=== PATIENT | male | born 1935 | race Caucasian/White ===

== ENCOUNTER → 2017-09-01 | Outpatient (CLI) | payer MEDICARE, OTHER | LOC: M SMT PRO 08:51 | DX: C61 Malignant neoplasm of prostate (principal); R97.20 Elevated prostate specific antigen [PSA]; N40.2 Nodular prostate without lower urinary tract symptoms | CPT/HCPCS: G0416 ==

== ENCOUNTER → 2017-09-07 | Outpatient (CLI) | payer MEDICARE, OTHER ==
[2017-09-07 18:54] LABS: ANION GAP 9 MEQ/L (8-16); BLOOD UREA NITROGEN 15 MG/DL (7-18); CALCIUM LEVEL 8.6 MG/DL (8.8-10.2); CARBON DIOXIDE LEVEL 27 MEQ/L (21-32); CHLORIDE LEVEL 107 MEQ/L (98-107); CREATININE FOR GFR 0.85 MG/DL (0.70-1.30); GLOMERULAR FILTRATION RATE > 60.0 (>35); GLUCOSE, FASTING 86 MG/DL (70-100); POTASSIUM SERUM 4.3 MEQ/L (3.5-5.1); SODIUM LEVEL 143 MEQ/L (136-145)
== END ==
LOC: M SMT 11:53
DX: C61 Malignant neoplasm of prostate (principal)
CPT/HCPCS: 80048

== ENCOUNTER → 2017-09-10 | Outpatient (CLI) | payer MEDICARE, OTHER ==
[~2017-09-10] MED LIST: ISOVUE-370 76% 100ML VIAL (Q9967) As Ordered
== END ==
LOC: M RAD 08:52
DX: C61 Malignant neoplasm of prostate (principal)
CPT/HCPCS: Q9967

== ENCOUNTER → 2017-09-22 | Outpatient (CLI) | payer MEDICARE, OTHER | LOC: M ONCR 09:59 | DX: C61 Malignant neoplasm of prostate (principal) | CPT/HCPCS: G0463 ==

== ENCOUNTER → 2017-10-06 | Outpatient (CLI) | payer MEDICARE, OTHER | LOC: M SMT 09:50 | DX: C61 Malignant neoplasm of prostate (principal) | CPT/HCPCS: A4648 ==

== ENCOUNTER 2017-10-20 10:25 | Outpatient (RCR) | payer MEDICARE, OTHER ==
[2017-10-20 12:31] LABS: HEMATOCRIT 45.2 % (42.0-52.0); HEMOGLOBIN 15.2 g/dl (13.5-17.5); MEAN CORPUSCULAR HEMOGLOBIN 29.9 pg (27.0-33.0); MEAN CORPUSCULAR HGB CONC 33.6 g/dl (32.0-36.5); PLATELET COUNT, AUTOMATED 213 10^3/uL (150-450); RED BLOOD COUNT 5.08 10^6/uL (4.30-6.10); RED CELL DISTRIBUTION WIDTH 12.2 % (11.5-14.5); WHITE BLOOD COUNT 9.3 10^3/uL (4.0-10.0)
== END 2017-11-09 ==
LOC: M ONCR 10:25
DX: C61 Malignant neoplasm of prostate (principal)
CPT/HCPCS: 77300

== ENCOUNTER 2017-11-10 09:39 | Outpatient (RCR) | payer MEDICARE, OTHER | END 2017-12-10 | LOC: M ONCR 09:39 | DX: C61 Malignant neoplasm of prostate (principal) | CPT/HCPCS: 77300 ==

== ENCOUNTER 2017-12-11 10:58 | Outpatient (RCR) | payer MEDICARE, OTHER | END 2018-01-09 | LOC: M ONCR 10:58 | DX: C61 Malignant neoplasm of prostate (principal) | CPT/HCPCS: 77336 ==

== ENCOUNTER → 2018-02-03 | Outpatient (CLI) | payer MEDICARE, OTHER ==
[2018-02-03 09:43] LABS: PROSTATIC SPECIFIC AG MONITOR 1.31 NG/ML (< 4.0)
== END ==
LOC: M LAB 08:38
DX: C61 Malignant neoplasm of prostate (principal)
CPT/HCPCS: 84153

== ENCOUNTER → 2018-02-10 | Outpatient (CLI) | payer MEDICARE, OTHER | LOC: M ONCR 10:21 | DX: C61 Malignant neoplasm of prostate (principal) | CPT/HCPCS: G0463 ==

== ENCOUNTER → 2018-05-27 | Outpatient (CLI) | payer MEDICARE, OTHER ==
[2018-05-27 14:41] LABS: PROSTATIC SPECIFIC AG MONITOR 0.6 NG/ML (< 4.0)
== END ==
LOC: M SMT 08:28
DX: C61 Malignant neoplasm of prostate (principal)
CPT/HCPCS: 84153

== ENCOUNTER → 2018-07-28 | Outpatient (CLI) | payer MEDICARE, OTHER ==
[~2018-07-28] MED LIST changes: +/ROPI1TA; +/TAMS4CA PO; +ACET50TA PO; +ASPI81TA83; +CAPSAICIN TOP; +CELE100C OR; +COLA100C2; +COMBIVENT INH; +DESOXIMETASONE; +DOCU10ELUD PO; +FLUN7IN; +FLUTISP; +FURO20TA PO; +HYDR25TA6; +IBUP600T; -ISOVUE-370 76% 100ML VIAL (Q9967) As Ordered; +LISI10TA4; +LOSARTAN PO; +MAGN500T2; +OMEP20CA3 PO; +PERC7.5T12 PO; +PRED5TAB; +PROS5TAB OR; +SIMV10TA2 OR; +TERA2CAP; +TERA2CAP3; +TRAMADOL PO; +TYLENOL #3; +UREA TOP; +VITACAP31 PO; +[UNRECOGNIZED DRUG - OTHER]; +cholecalciferol PO; +colestipol; +hydrocodone PO; +lisinopril/hctz PO
--- NOTE | 2018-07-29 11:09 | RADONC ---
RADIATION ONCOLOGY FOLLOWUP NOTE DATE: 07/28/2018 DIAGNOSIS: Prostate cancer. STAGE: Stage II C, [id number], PSA 13.7, Asad score 7 (4+3), grade group III. ECOG PERFORMANCE STATUS: 0. FOLLOWUP NOTE: Mr. 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 The patient presents today reporting that he is doing quite well with no complaints at this time related to his radiation therapy or disease. He has no significant urinary or bowel difficulties and no bone pain. The patient's review of systems is noncontributory. Denies nausea, vomiting, fevers, chills, night sweats, diplopia, headaches, anxiety or depression, anorexia, weight loss, visual disturbances, chest pain, urinary or bowel difficulties, bone pain, or neurological problems. PHYSICAL EXAMINATION: The patient is a well-developed, well-nourished male in no acute distress. HEENT exam is normocephalic, atraumatic. Extraocular movements are intact. There is no palpable cervical, supraclavicular, infraclavicular, axillary, or inguinal lymphadenopathy present. Lungs are clear to auscultation and percussion. Heart has a regular rate and rhythm. Abdomen is benign with no hepatosplenomegaly, masses, or tenderness. Rectal examination reveals a normal anal sphincter tone. His prostate is smooth with no evidence of nodularity. Skeletal examination reveals no tenderness to pressure or percussion of the bony skeleton. Extremities reveal no clubbing, cyanosis, or edema. Neurologic exam is grossly intact, as is the remainder of the physical examination. ASSESSMENT: The patient is clinically EVITA at this time and will be seen by us again in 6 months for further followup. He will also continue to be followed by his other physicians as well. cc: Nba Romero MD [facility]
== END ==
LOC: M ONCR 09:17
PROVIDERS: ATTEND Radiology Radiation Oncology
DX: Z85.46 Personal history of malignant neoplasm of prostate (principal)

== ENCOUNTER → 2018-11-16 | Outpatient (CLI) | payer MEDICARE, OTHER ==
[~2018-11-16] MED LIST changes: -/ROPI1TA; -/TAMS4CA PO; -ACET50TA PO; -DOCU10ELUD PO; +DOCU5LIQ PO; +FLOM0.4C39 PO; +FLUT1SPR2; -FLUTISP; +MAPA500T17 PO; +REQU1TAB16
== END ==
LOC: M SMT 10:41
PROVIDERS: ATTEND Urology
DX: C61 Malignant neoplasm of prostate (principal)

== ENCOUNTER → 2019-01-05 | Outpatient (CLI) | payer MEDICARE, OTHER | LOC: M ONCR 07:51 | PROVIDERS: ATTEND Radiology Radiation Oncology | DX: R97.20 Elevated prostate specific antigen [PSA] (principal) ==

== ENCOUNTER → 2019-01-12 | Outpatient (CLI) | payer MEDICARE, OTHER ==
--- NOTE | 2019-01-13 09:46 | RADONC ---
RADIATION ONCOLOGY FOLLOWUP NOTE DATE: 01/12/2019 CHART NUMBER: DIAGNOSIS: Prostate cancer. STAGE: IIC, [id number], PSA originally 13.7, Asad score 7 (4+ 3), grade group 3. ECOG PERFORMANCE STATUS: 0. FOLLOWUP NOTE: Mr. Bryan is a very pleasant 84-year-old white male with a diagnosis of a stage IIC, [id number], moderately to poorly differentiated Asad score 7 (4+3), adenocarcinoma of the prostate who presents to us today after having completed a course of local regional radiotherapy on 12/30/2017. He tolerated his radiotherapy reasonably well and returns today with no specific complaints referable to his disease or to his treatments. His most recent PSA was noted to be 0.680 ng/ml. This has reduced since his prior PSA of 1.31. REVIEW OF SYSTEMS: In general the patient feels well. He denies any nausea, vomiting, diarrhea, dysuria, hematuria or blood per rectum. His energy level is somewhat diminished but he is still able to maintain most day-to-day activities without any alteration of his lifestyle. He continues to play golf several times per week. He also denies any chest pain, urinary issues, bone pain or neurologic problems. PHYSICAL EXAMINATION: He is a well-developed, well-nourished male who looks appropriate for his stated age. Skin: The skin within the irradiated volume shows neither erythema nor desquamation. Lymphatics: No palpable peripheral lymphadenopathy. Lungs: Clear to auscultation and percussion. Heart: Regular without murmurs. Abdomen: Without evidence of hepatomegaly, masses, deep abdominal tenderness. Extremities: Without cyanosis, clubbing or edema. Rectal: Examination essentially negative. Neurologic: Examination grossly physiologic and nonfocal. IMPRESSION: The patient is clinically EVITA now with a PSA of 0.680 ng/ml. PLAN: We would like to have him come back in approximately 6 months. He was encouraged to return to his referring physicians as per their directions and instructions. cc: Nba Romero MD
== END ==
LOC: M ONCR 09:04
PROVIDERS: ATTEND Radiology Radiation Oncology
DX: Z85.46 Personal history of malignant neoplasm of prostate (principal); Z92.3 Personal history of irradiation

== ENCOUNTER → 2019-06-22 | Outpatient (CLI) | payer MEDICARE, OTHER ==
--- NOTE | 2019-06-22 11:41 | RADONC ---
RADIATION ONCOLOGY FOLLOWUP NOTE DATE: 06/22/2019 CHART NUMBER: [id number] DIAGNOSIS: Prostate cancer. STAGE: II C, [id number], PSA originally 13.7, Ashley score 7 (4-3), grade group 3. ECOG PERFORMANCE STATUS: 0 FOLLOWUP NOTE: Mr. Bryan is a very pleasant 84-year-old white male with the diagnosis of a stage II C, [id number], moderate to poorly differentiated Ashley score 7 (4-3) adenocarcinoma prostate who is presenting to us today for routine followup visit 1 year and 6 months post completion of external beam radiation therapy. The patient presents today reporting that he is doing quite well with no complaints at this time related to his radiation therapy or disease. He has no urinary or bowel difficulties. No bone pain. REVIEW OF SYSTEMS: The patient's review of systems is noncontributory. Denies nausea, vomiting, fevers, chills, night sweats, diplopia, headaches, anxiety or depression, anorexia, weight loss, visual disturbances, chest pain, urinary or bowel difficulties, bone pain, or neurological problems. PHYSICAL EXAMINATION: The patient is a well-developed, well-nourished male in no acute distress. HEENT exam is normocephalic, atraumatic. Extraocular movements are intact. There is no palpable cervical, supraclavicular, infraclavicular, axillary, or inguinal lymphadenopathy present. Lungs are clear to auscultation and percussion. Heart has a regular rate and rhythm. Abdomen is benign with no hepatosplenomegaly, masses, or tenderness. Rectal examination reveals a normal anal sphincter tone. His prostate is smooth with no evidence of nodularity. Skeletal examination reveals no tenderness to pressure or percussion of the bony skeleton. Extremities reveal no clubbing, cyanosis, or edema. Neurologic exam is grossly intact, as is the remainder of the physical examination. ASSESSMENT: The patient is clinically EVITA at this time and will be seen by us again in 6 months for further followup. He will also continue be followed by his other physicians as well. cc: Nba Romero MD
== END ==
LOC: M ONCR 08:54
PROVIDERS: ATTEND Radiology Radiation Oncology
DX: Z85.46 Personal history of malignant neoplasm of prostate (principal); Z92.3 Personal history of irradiation

== ENCOUNTER → 2019-12-14 | Outpatient (CLI) | payer MEDICARE, OTHER ==
--- NOTE | 2019-12-20 08:26 | RADONC ---
RADIATION ONCOLOGY FOLLOWUP NOTE DATE: 12/14/2019 This is a telemedicine visit. The patient was informed of the risks including security breech, technological failure, inability to perform a comprehensive physical exam which could delay or prevent an accurate diagnosis, and potential complications from treatment decisions rendered over a telemedicine platform. The patient understands and consented to the use of telehealth services phone only. CHART #: [id number] DIAGNOSIS: Prostate cancer. STAGE: II C, T2b,N0, M0, Asad score 7 (3-4) grade group III, original PSA 13.7. ECOG PERFORMANCE STATUS: 0. FOLLOWUP NOTE: Mr. Bryan is a very pleasant 85-year-old white male with the diagnosis of a stage II C, T2b, N0, M0, moderate to poorly differentiated Asad score 7 (3-4) adenocarcinoma of the prostate who is presenting to us today for routine followup visit almost 2 years post completion of external beam radiation therapy. The patient presents today reporting that he is doing quite well with no complaints at this time related to his radiation therapy or disease. He has no urinary or bowel difficulties. No bone pain. REVIEW OF SYSTEMS: The patient's review of systems is noncontributory. Denies nausea, vomiting, fevers, chills, night sweats, diplopia, headaches, anxiety or depression, anorexia, weight loss, visual disturbances, chest pain, urinary or bowel difficulties, bone pain, or neurological problems. PHYSICAL EXAMINATION: Physical examination was deferred at this point for as per COVID-19 precautions. This was a telephone interview. Mr. Bryan is doing well post radiation and his PSA has dropped again to 0.68, drawn on 12/07/2019. We scheduled the patient for a followup visit in our office in six months' time. cc: Nba Romero MD
== END ==
LOC: M ONCR 09:04
PROVIDERS: ATTEND Radiology Radiation Oncology
DX: C61 Malignant neoplasm of prostate (principal)

== ENCOUNTER → 2020-06-13 | Outpatient (CLI) | payer MEDICARE, OTHER ==
[~2020-06-13] MED LIST changes: +TAMS1CAP17 PO
--- NOTE | 2020-06-13 10:45 | RADONC ---
Radiation Oncology Hx/FUP Radiation Oncology Hx/FUP Date of Service: Jun 13, 2020 Pt Identifier Bienvenido Bryan is a 84 year old male seen for a followup visit today at the department of radiation oncology for a history of prostate cancer T2b [place] 4+3=7 PSA 13.7. He completed EBRT to 79.2 Gy in 44 fractions on 12/30/17. He also completed 6 months of ADT with Dr. Romero. Diagnosis/Treatment History Oncologic History As above. PSA Pre RT 13.70 02/03/18 1.31 05/27/18 0.60 11/26/18 0.81 01/05/19 1.10 06/15/19 1.25 12/07/19 0.68 Interval History Feels well. Appetite and energy levels good. 2-3x nocturia. 10x daytime frequency with some urgency. Stream is good, emptying sometimes incomplete. Taking flomax 0.4 mg QHS. No side effects from this. He has normal BMs daily. No BRBPR. No dyschezia. Current Therapy Surveillance Stage Unfavorable intermediate risk prostate cancer T2b [place] 4+3=7 PSA 13.7 Social History: Non-smoker Non-drinker Allergies / Meds Allergies: Coded Allergies: No Known Allergies (Verified , 08/25/08) Home Meds Reported Medications Acetaminophen (TYLENOL) 500 Mg Tab, 650 MG PO Q4HP PRN for PAIN, TAB 06/22/13 Tamsulosin HCl (FLOMAX) 0.4 Mg Cap, 0.4 MG PO DAILY, CAP 06/22/13 Docusate Sodium (COLACE LIQUID) 100 Mg/10 Ml Liqd, 100 MG PO BID 06/22/13 [Combivent] No Conflict Check, 2 PUFFS INH QID 06/16/13 [Furosemide] (Furosemide) No Conflict Check, 20 MG PO DAILY 06/16/13 [Losartan] No Conflict Check, 50 MG PO BID 06/16/13 Omeprazole (OMEPRAZOLE) 20 Mg Cap, 20 MG PO DAILY, CAP 06/16/13 [Vitamin D3] (VITAMIN D3) No Conflict Check, 1000 UNITS PO DAILY 06/16/13 Celecoxib (Celebrex) 100 Mg Cap, 100 MG OR BID 02/13/11 Ropinirole Hcl (Requip) 1 Mg Tab 08/25/08 Aspirin (Aspirin Low Dose) 81 Mg Tab 08/25/08 Discontinued Reported Medications Percocet (PERCOCET) 1 Tab Tab, 1-2 TABS PO Q4HP PRN for PAIN, TAB 06/22/13 Fluticasone Propionate (FLONASE 0.05% NASAL SPRAY) 120 Phelps/16 Gm Naspr, 2 SPRAY NA BIDP PRN for NASAL DRYNESS 06/22/13 Review of Systems Review of Systems Constitutional: Denies: Weakness, Fatigue, Weight Loss Eyes: Denies: Pain, Vision change HEENT: Denies: Head Aches Skin: Denies: Rash Pulmonary: Denies: Dyspnea, Cough Cardiovascular: Denies: Chest Pain Gastrointestinal: Denies: Nausea, Vomiting, Diarrhea, Hematochezia Genitourinary: Reports: Frequency; Denies: Dysuria, Incontinence, Hematuria Hematologic: Denies: Bruising Endocrine: Denies: Polydipsia Musculoskeletal: Denies: Neck pain, Back pain Neurological: Denies: Weakness, Numbness Psych: Reports: Mood Normal Physical Examination Vital Signs Ht 67" Wt 193 lb BMI 30 T 98.2 P 55 RR 18 BP 156/62 O2 96% General Exam: Positive: Alert, Cooperative; Negative: No Acute Distress Eye Exam: Positive: PERRLA, EOMI ENT EXAM: Positive: Atraumatic, Pharynx Normal Neck Exam: Positive: Supple Chest Exam: Positive: Normal air movement Heart Exam: Positive: Rate Normal, Regular Rhythm Abdomen Exam: Positive: Soft; Negative: Tenderness Extremity Exam: Negative: Edema Skin Exam: Positive: Nl turgor and temperature Neuro Exam: Positive: Normal Gait, Normal Speech, Cranial Nerves 3-12 NL Psych Exam: Positive: Mental status NL, Mood NL Other Physical Findings Deferred MICHELE, needs PSA drawn today Diagnostic and Laboratory Diagnostic Review Radiologic images, relevant labs and pathology reports were personally reviewed and discussed with Mr. Bryan. Assessment and Plan Impression Assessment Mr. Bryan is a 84 year old male with a history of prostate cancer T2b [place] 4+3=7 PSA 13.7. He completed EBRT to 79.2 Gy in 44 fractions on 12/30/17. He also completed 6 months of ADT with Dr. Romero. He has some urinary bother, we discussed increasing flomax to 0.8 mg QHS in effort to reduce his nocturia. I will send a new Rx. He is due for a PSA check today, if his PSA remains stable then I will see him in one year, if it is oscillating, then we can continue q6m. He agrees to the plan and will call if the increase in flomax fails to improve his frequent urination. Plan PSA today, will call with result Increase flomax to 0.8 mg QHS Follow up in 1 year if PSA stable/low Mr. Bryan was encouraged to call with questions or concerns in the interim period. DEION WADE MD Jun 13, 2020 10:45
== END ==
LOC: M ONCR 09:54
PROVIDERS: ATTEND General Practice
DX: C61 Malignant neoplasm of prostate (principal)
CPT/HCPCS: 36415; 84153; G0463

== ENCOUNTER → 2020-09-28 | Outpatient (CLI) | payer MEDICARE, OTHER ==
[2020-09-28 17:31] LABS: C REACTIVE PROTEIN QUANTITATIV 6.35 MG/DL (0.00-0.30); RHEUMATOID FACTOR QUANT < 10.0 IU/ML (<15.0); URIC ACID 4.7 MG/DL (3.5-7.2)
[2020-10-01 16:08] LABS: ANTINUCLEAR ANTIBODIES DIRECT Negative (Negative); Lyme Disease IgG/IgM Antibodie <0.91 ISR (0.00-0.90); Lyme Disease IgM Ab Quantitati <0.80 index (0.00-0.79)
== END ==
LOC: M PLALAB 13:30
PROVIDERS: ATTEND Orthopaedic Surgery
DX: R22.32 Localized swelling, mass and lump, left upper limb (principal)

== ENCOUNTER → 2020-11-20 | Outpatient (REF) | payer MEDICARE, OTHER ==
[2020-11-20 13:11] LABS: BASO % 0.3 % (0.0-1.0); EOS # 0.4 10^3/uL (0.0-0.5); EOS % 3.8 % (0.0-3.0); HEMATOCRIT 42.3 % (42.0-52.0); HEMOGLOBIN 13.5 g/dl (13.5-17.5); LYMPH # 1.5 10^3/uL (1.5-5.0); LYMPH % 15.4 % (24.0-44.0); MEAN CORPUSCULAR HEMOGLOBIN 27.7 pg (27.0-33.0); MEAN CORPUSCULAR HGB CONC 31.9 g/dl (32.0-36.5); MEAN CORPUSCULAR VOLUME 86.9 fl (80.0-96.0); MONO # 0.6 10^3/uL (0.0-0.8); MONO % 6.6 % (2.0-8.0); NEUTROPHILS # 6.9 10^3/uL (1.5-8.5); NEUTROPHILS % 73.5 % (36.0-66.0); PLATELET COUNT, AUTOMATED 327 10^3/uL (150-450); RED BLOOD COUNT 4.87 10^6/uL (4.30-6.10); WHITE BLOOD COUNT 9.4 10^3/uL (4.0-10.0)
[2020-11-20 13:45] LABS: ALBUMIN 3.3 GM/DL (3.2-5.2); ALT/SGPT 45 U/L (12-78); BILIRUBIN,TOTAL 1.1 MG/DL (0.2-1.0); BLOOD UREA NITROGEN 12 MG/DL (7-18); C REACTIVE PROTEIN QUANTITATIV 3.54 MG/DL (0.00-0.30); CALCIUM LEVEL 9.2 MG/DL (8.8-10.2); CARBON DIOXIDE LEVEL 30 MEQ/L (21-32); CHLORIDE LEVEL 105 MEQ/L (98-107); ERYTHROCYTE SEDIMENTATION RATE 23 mm/hr (0-20); GLOMERULAR FILTRATION RATE > 60.0 (>35); GLUCOSE, FASTING 101 MG/DL (70-100); SODIUM LEVEL 139 MEQ/L (136-145); TOTAL PROTEIN 6.2 GM/DL (6.4-8.2)
[2020-11-20 13:59] LABS: HEPATITIS B SURFACE ANTIGEN NEGATIVE (NEGATIVE)
[2020-11-20 14:28] LABS: HEPATITIS C VIRUS ABY INDEX < 0.0 INDEX (<0.8)
[2020-11-21 23:10] LABS: CYCLIC CITRULLINATED PEPTIDE 9 units (0-19); HEPATITIS B CORE ANTIBODY IGG Negative (Negative); SSA SJOGRENS A <0.2 AI (0.0-0.9); SSB SJOGRENS B <0.2 AI (0.0-0.9)
== END ==
LOC: M SFHCRHEU 08:52
PROVIDERS: ATTEND Internal Medicine Rheumatology
DX: M06.09 Rheumatoid arthritis without rheumatoid factor, multiple sites (principal)
CPT/HCPCS: 80053; 85025; 85652; 86140; 86200; 86235; 86480; 86704; 86803; 87340; 96372; G0463; J1040

== ENCOUNTER → 2020-11-23 | Outpatient (CLI) | payer MEDICARE, OTHER ==
--- NOTE | 2020-11-23 12:10 | REPPI ---
INDICATION: M06.09 RHEUMATOID ARTHRITIS OF MULTIPLE SITES WITH NEGATIVE COMPARISON: None. TECHNIQUE: Four views bilateral feet. FINDINGS: There is no evidence of acute fracture, dislocation, or intrinsic bone disease.The right there is mild inferior calcaneal spurring. There is mild narrowing and sclerosis at the 1st metatarsophalangeal joint. There is mild diffuse narrowing of interphalangeal joints. Accessory ossicles are seen lateral to the cuboid. On the left is mild inferior calcaneal spurring. There is mild narrowing and sclerosis at the 1st metatarsophalangeal joint. There is an accessory ossicle lateral to the cuboid. There is mild diffuse narrowing of interphalangeal joints. Mild scattered vascular calcifications are seen in the soft tissues. IMPRESSION: No fracture or dislocation. Mild arthritic changes as discussed above. <Electronically signed by Jesus South > 11/23/20 [id number]
--- NOTE | 2020-11-23 12:36 | REPPI ---
INDICATION: M06.09 RHEUMATOID ARTHRITIS OF MULTIPLE SITES WITH NEGATIVE COMPARISON: None. TECHNIQUE: Four views bilateral hands. FINDINGS: There is no evidence of acute fracture, dislocation, or intrinsic bone disease.On the left there is mild radiocarpal joint space narrowing with subchondral sclerosis. There is mild narrowing between the scaphoid and adjacent trapezium and trapezoid bones. There is mild narrowing of the 1st, 4th and 5th metacarpophalangeal joints. There is moderately severe narrowing of the 2nd and 3rd metacarpophalangeal joints. There is mild spurring of the base of the 1st distal phalanx. There is mild diffuse narrowing of the distal interphalangeal joints. There is mild spurring at the base of the 2nd distal phalanx. On the right there is mild radiocarpal joint space narrowing and subchondral sclerosis. There is mild narrowing between the scaphoid and adjacent trapezium and trapezoid. There is mild narrowing and spurring at the joint between trapezoid and base of 1st metacarpal. There is mild diffuse narrowing of metacarpophalangeal joints with moderately severe narrowing of the 2nd metacarpophalangeal joint. There is mild spurring of the head of the 2nd metacarpal. There is mild diffuse narrowing of the interphalangeal joints. There is mild spurring at the base of the 2nd distal phalanx. Mild vascular calcifications are seen in the soft tissues of the wrist anteriorly and laterally. IMPRESSION: No fracture or dislocation. Bilateral arthritic changes as discussed in detail above. <Electronically signed by Jesus South > 11/23/20 1955
== END ==
LOC: M PLAIMG 11:03
PROVIDERS: ATTEND Internal Medicine Rheumatology
DX: M06.041 Rheumatoid arthritis without rheumatoid factor, right hand (principal); M06.042 Rheumatoid arthritis without rheumatoid factor, left hand; M06.072 Rheumatoid arthritis without rheumatoid factor, left ankle and foot; M06.071 Rheumatoid arthritis without rheumatoid factor, right ankle and foot

== ENCOUNTER → 2021-01-18 | Outpatient (REF) | payer MEDICARE, OTHER ==
[2021-01-18 17:27] LABS: BASO % 0.5 % (0.0-1.0); EOS # 0.1 10^3/uL (0.0-0.5); EOS % 1.6 % (0.0-3.0); HEMATOCRIT 42.3 % (42.0-52.0); HEMOGLOBIN 13.3 g/dl (13.5-17.5); LYMPH # 1.1 10^3/uL (1.5-5.0); LYMPH % 13.6 % (24.0-44.0); MEAN CORPUSCULAR HGB CONC 31.4 g/dl (32.0-36.5); MEAN CORPUSCULAR VOLUME 92.2 fl (80.0-96.0); MONO # 0.3 10^3/uL (0.0-0.8); MONO % 3.4 % (2.0-8.0); NEUTROPHILS # 6.2 10^3/uL (1.5-8.5); NEUTROPHILS % 80.1 % (36.0-66.0); PLATELET COUNT, AUTOMATED 251 10^3/uL (150-450); RED BLOOD COUNT 4.59 10^6/uL (4.30-6.10); WHITE BLOOD COUNT 7.7 10^3/uL (4.0-10.0)
[2021-01-18 17:57] LABS: ALBUMIN 3.7 GM/DL (3.2-5.2); ALT/SGPT 28 U/L (12-78); BILIRUBIN,TOTAL 1.1 MG/DL (0.2-1.0); BLOOD UREA NITROGEN 17 MG/DL (7-18); C REACTIVE PROTEIN QUANTITATIV 0.33 MG/DL (0.00-0.30); CALCIUM LEVEL 8.9 MG/DL (8.8-10.2); CARBON DIOXIDE LEVEL 31 MEQ/L (21-32); CHLORIDE LEVEL 106 MEQ/L (98-107); CREATININE FOR GFR 0.73 MG/DL (0.70-1.30); GLOMERULAR FILTRATION RATE > 60.0 (>35); GLUCOSE, FASTING 106 MG/DL (70-100); POTASSIUM SERUM 4.7 MEQ/L (3.5-5.1); SODIUM LEVEL 140 MEQ/L (136-145); TOTAL PROTEIN 6.3 GM/DL (6.4-8.2)
[2021-01-18 18:26] LABS: ERYTHROCYTE SEDIMENTATION RATE 8 mm/hr (0-20)
== END ==
LOC: M SFHCRHEU 12:16
PROVIDERS: ATTEND Internal Medicine Rheumatology
DX: M06.09 Rheumatoid arthritis without rheumatoid factor, multiple sites (principal); Z79.899 Other long term (current) drug therapy
CPT/HCPCS: 80053; 85025; 85652; 86140; G0463

== ENCOUNTER → 2021-04-25 | Outpatient (CLI) | payer MEDICARE, OTHER ==
[~2021-04-25] MED LIST changes: +ASPI1CHW3 PO; +CELE1CAP7 PO; +CEPH500C PO; +CHLO25TA PO; +DICL1GEL3 TOP; +DOCU60SY3 PO; +LEVO250T12 PO; +METH2.5T48 PO; +NEUR100C PO; +POTA10TA17 PO; +PRAV40TA2 PO; +ROPI1TAB3 PO
[2021-04-25 17:21] LABS: BASO % 0.5 % (0.0-1.0); EOS # 0.4 10^3/uL (0.0-0.5); EOS % 5.5 % (0.0-3.0); HEMATOCRIT 39.7 % (42.0-52.0); LYMPH # 1.6 10^3/uL (1.5-5.0); LYMPH % 23.9 % (24.0-44.0); MEAN CORPUSCULAR HEMOGLOBIN 30.2 pg (27.0-33.0); MEAN CORPUSCULAR HGB CONC 32.7 g/dl (32.0-36.5); MEAN CORPUSCULAR VOLUME 92.1 fl (80.0-96.0); MONO # 0.6 10^3/uL (0.0-0.8); MONO % 8.6 % (2.0-8.0); NEUTROPHILS % 60.9 % (36.0-66.0); PLATELET COUNT, AUTOMATED 235 10^3/uL (150-450); RED BLOOD COUNT 4.31 10^6/uL (4.30-6.10); WHITE BLOOD COUNT 6.5 10^3/uL (4.0-10.0)
[2021-04-25 17:32] LABS: ALBUMIN 3.2 GM/DL (3.2-5.2); ALT/SGPT 25 U/L (12-78); BLOOD UREA NITROGEN 17 MG/DL (7-18); CALCIUM LEVEL 8.6 MG/DL (8.8-10.2); CARBON DIOXIDE LEVEL 31 MEQ/L (21-32); CHLORIDE LEVEL 109 MEQ/L (98-107); CREATININE FOR GFR 0.79 MG/DL (0.70-1.30); GLOMERULAR FILTRATION RATE > 60.0 (>35); GLUCOSE, FASTING 101 MG/DL (70-100); POTASSIUM SERUM 3.9 MEQ/L (3.5-5.1); SODIUM LEVEL 143 MEQ/L (136-145); TOTAL PROTEIN 5.9 GM/DL (6.4-8.2)
[2021-04-25 18:05] LABS: ERYTHROCYTE SEDIMENTATION RATE 6 mm/hr (0-20)
== END ==
LOC: M PLALAB 15:37
PROVIDERS: ATTEND Internal Medicine Rheumatology
DX: M06.09 Rheumatoid arthritis without rheumatoid factor, multiple sites (principal); Z79.899 Other long term (current) drug therapy
CPT/HCPCS: 36415; 80053; 85025; 85652; 86140; G0463

== ENCOUNTER → 2021-06-19 | Outpatient (CLI) | payer MEDICARE, OTHER ==
[~2021-06-19] MED LIST changes: -LEVO250T12 PO; +LEVO250T3 PO; +TRAM50TA2 PO
== END ==
LOC: M ONCR 10:24
PROVIDERS: ATTEND General Practice
DX: C61 Malignant neoplasm of prostate (principal); S81.801D Unspecified open wound, right lower leg, subsequent encounter; Z92.3 Personal history of irradiation; Z79.899 Other long term (current) drug therapy
CPT/HCPCS: 36415; 84153; 87070; 87077; 87186; 87205; G0463

== ENCOUNTER → 2021-07-03 | Outpatient (CLI) | payer MEDICARE, OTHER ==
[~2021-07-03] MED LIST changes: +LEVO250T12 PO; -LEVO250T3 PO; -TRAM50TA2 PO
--- NOTE | 2021-07-03 11:56 | RADONC ---
Radiation Oncology Hx/FUP Radiation Oncology Hx/FUP Date of Service: Jul 03, 2021 Pt Identifier Gene Bridget Bryan is a 85 year old male seen for a followup visit today at the department of radiation oncology for a history of prostate cancer T2b [place] 4+3=7 PSA 13.7. He completed EBRT to 79.2 Gy in 44 fractions on 12/30/17. He also completed 6 months of ADT with Dr. Romero. Diagnosis/Treatment History Oncologic History As above. PSA Pre RT 13.70 02/03/18 1.31 05/27/18 0.60 11/26/18 0.81 01/05/19 1.10 06/15/19 1.25 12/07/19 0.68 06/13/20 0.61 06/19/21 1.33 Interval History Gene reports that the leg wound is feeling better and improving steadily. He completed the 7 days of levaquin for the pseudomonas + culture. Since then he notes much less exudate and no malodor. He is recently returned from [facility] where he was visiting family. Current Therapy Surveillance Stage Unfavorable intermediate risk prostate cancer T2b [place] 4+3=7 PSA 13.7 Social History: Non-smoker Non-drinker Allergies / Meds Allergies: Coded Allergies: No Known Allergies (Verified , 08/25/08) Home Meds Active Scripts Levofloxacin (Levofloxacin) 250 Mg Tablet, 1 TAB PO DAILY for 7 Days, #7 TAB Prov:DEION WADE MD 06/21/21 Tamsulosin Hcl (Tamsulosin HCl) 0.4 Mg Capsule, 0.8 MG PO QPM, #180 CAP 3 Refills Take at least 2 hours before bedtime Prov:DEION WADE MD 06/13/20 Reported Medications Potassium Chloride (Potassium Chloride) 10 Meq Tab.er.prt, 1 TAB PO DAILY for 30 Days, #30 TAB 06/19/21 Gabapentin (Neurontin) 100 Mg Capsule, 100 MG PO, CAP 06/19/21 Pravastatin Sodium (Pravastatin Sodium) 40 Mg Tablet, 1 TAB PO DAILY for 30 Days, #30 TAB 06/19/21 Diclofenac Sodium (Diclofenac Sodium) 1% 100GM Gel..gram., 1 APLCT TOP QID for 21 Days, #100 GRAM 06/19/21 Chlorthalidone (Chlorthalidone) 25 Mg Tablet, 1 TAB PO DAILY for 30 Days, #30 TAB 06/19/21 Methotrexate Sodium (Methotrexate) 2.5 Mg Tablet, 2.5 MG PO Q7D for 28 Days, #16 TAB 06/19/21 Docusate Sodium (Docusate Sodium) 60 Mg/15 Ml Syrup, 60 MG PO 06/19/21 Ropinirole HCl (Ropinirole HCl) 1 Mg Tablet, 1 TAB PO QPM for 30 Days, #30 TAB 06/19/21 Aspirin (Aspirin) 81 Mg Tab.chew, 1 TAB PO DAILY for pain for 30 Days, #30 TAB 06/19/21 [Combivent] No Conflict Check, 2 PUFFS INH QID 06/16/13 [Furosemide] (Furosemide) No Conflict Check, 20 MG PO DAILY 06/16/13 [Vitamin D3] (VITAMIN D3) No Conflict Check, 1000 UNITS PO DAILY 06/16/13 Physical Examination Vital Signs T 96 P 69 RR 17 BP 148/67 O2 97% Pain 0 Fatigue 0 General Exam: Alert, Cooperative, No Acute Distress Skin Exam: Lesion (On the left medial hugo the wound appears smaller now 3 x 5 cm in extent, minimal kim/yellow exudate, health granulation tissue on the wound margins, evidence of concentric primary intention healing. ) Other Physical Findings The wound was first irrigated and then gently cleansed with sterile saline on 2x2 gauze to remove the exudate, there was no necrotic tissue along the wound margins to debride, so I proceeded just to dress the wound with polymem foam cut-to-size and covered with a telfa pad and micropore tape. Diagnostic and Laboratory Diagnostic Review Radiologic images, relevant labs and pathology reports were personally reviewed and discussed with Mr. Bryan. Assessment and Plan Impression Assessment Mr. Bryan is a 85 year old male with a history of prostate cancer T2b [place] 4+3=7 PSA 13.7. He completed EBRT to 79.2 Gy in 44 fractions on 12/30/17. He also completed 6 months of ADT with Dr. Romero. His wound is improved markedly since the debridement 2 weeks ago, I think that it will be healed in 1 month or so. His PSA however has doubled in the past year, but in the setting of active infection, I would like to repeat the PSA in 1 month and also check the wound at that time. He has yet to meet the [place] criteria for biochemical failure post-RT and so I will continue to follow. Performance Status ECOG 1 Plan Follow up in 1 month for wound check/repeat PSA Mr. Bryan was encouraged to call with questions or concerns in the interim period. Billing Statement Total time of [25] minutes was spent preparing for the visit [1], obtaining HPI [5], examining the patient [6], reviewing diagnostic tests [1], discussing management options [5], coordinating care [1], and writing this note [6]. DEION WADE MD Jul 03, 2021 11:56
== END ==
LOC: M ONCR 10:20
PROVIDERS: ATTEND General Practice
DX: C61 Malignant neoplasm of prostate (principal); S81.802D Unspecified open wound, left lower leg, subsequent encounter; Z92.3 Personal history of irradiation; Z79.899 Other long term (current) drug therapy

== ENCOUNTER → 2021-08-02 | Outpatient (CLI) | payer MEDICARE, OTHER ==
[~2021-08-02] MED LIST changes: -LEVO250T12 PO; +LEVO250T3 PO
== END ==
LOC: M ONCR 10:01
PROVIDERS: ATTEND General Practice
DX: C61 Malignant neoplasm of prostate (principal); Z92.3 Personal history of irradiation; S81.801D Unspecified open wound, right lower leg, subsequent encounter; Z79.899 Other long term (current) drug therapy

== ENCOUNTER → 2021-08-07 | Outpatient (CLI) | payer MEDICARE, OTHER ==
[~2021-08-07] MED LIST changes: +TRAM50TA2 PO
[2021-08-07 17:36] LABS: BASO % 0.5 % (0.0-1.0); EOS # 0.4 10^3/uL (0.0-0.5); EOS % 5.4 % (0.0-3.0); HEMATOCRIT 41.9 % (42.0-52.0); HEMOGLOBIN 13.8 g/dl (13.5-17.5); LYMPH # 1.7 10^3/uL (1.5-5.0); LYMPH % 22.4 % (24.0-44.0); MEAN CORPUSCULAR HGB CONC 32.9 g/dl (32.0-36.5); MEAN CORPUSCULAR VOLUME 94.2 fl (80.0-96.0); MONO # 0.7 10^3/uL (0.0-0.8); MONO % 8.9 % (2.0-8.0); NEUTROPHILS # 4.6 10^3/uL (1.5-8.5); PLATELET COUNT, AUTOMATED 259 10^3/uL (150-450); RED BLOOD COUNT 4.45 10^6/uL (4.30-6.10); WHITE BLOOD COUNT 7.4 10^3/uL (4.0-10.0)
[2021-08-07 18:08] LABS: ALBUMIN 3.4 GM/DL (3.2-5.2); ALT/SGPT 29 U/L (12-78); BILIRUBIN,TOTAL 0.8 MG/DL (0.2-1.0); BLOOD UREA NITROGEN 17 MG/DL (7-18); C REACTIVE PROTEIN QUANTITATIV 0.54 MG/DL (0.00-0.30); CALCIUM LEVEL 8.9 MG/DL (8.8-10.2); CARBON DIOXIDE LEVEL 30 MEQ/L (21-32); CHLORIDE LEVEL 108 MEQ/L (98-107); CREATININE FOR GFR 0.87 MG/DL (0.70-1.30); GLOMERULAR FILTRATION RATE > 60.0 (>35); GLUCOSE, FASTING 121 MG/DL (70-100); POTASSIUM SERUM 4.7 MEQ/L (3.5-5.1); SODIUM LEVEL 143 MEQ/L (136-145); TOTAL PROTEIN 6.1 GM/DL (6.4-8.2)
[2021-08-07 18:22] LABS: ERYTHROCYTE SEDIMENTATION RATE 10 mm/hr (0-20)
== END ==
LOC: M PLALAB 14:03
PROVIDERS: ATTEND Internal Medicine Rheumatology
DX: M06.09 Rheumatoid arthritis without rheumatoid factor, multiple sites (principal); R97.20 Elevated prostate specific antigen [PSA]; M89.49 Other hypertrophic osteoarthropathy, multiple sites; Z79.899 Other long term (current) drug therapy

== ENCOUNTER → 2021-09-04 | Outpatient (CLI) | payer MEDICARE, OTHER | LOC: M ONCR 09:17 | PROVIDERS: ATTEND General Practice | DX: R97.21 Rising PSA following treatment for malignant neoplasm of prostate (principal); C44.702 Unspecified malignant neoplasm of skin of right lower limb, including hip; T81.31XA Disruption of external operation (surgical) wound, not elsewhere classified, initial encounter; Z79.899 Other long term (current) drug therapy; Z85.46 Personal history of malignant neoplasm of prostate; Z92.3 Personal history of irradiation ==

== ENCOUNTER 2021-10-01 08:36 | Outpatient (RCR) | payer MEDICARE, OTHER | END 2021-10-10 | LOC: M ONCR 08:36 | PROVIDERS: ATTEND General Practice | DX: C61 Malignant neoplasm of prostate (principal) ==

== ENCOUNTER → 2021-12-10 | Outpatient (CLI) | payer MEDICARE, OTHER ==
[2021-12-10 17:11] LABS: BASO % 0.3 % (0.0-1.0); EOS # 0.3 10^3/uL (0.0-0.5); EOS % 4.5 % (0.0-3.0); HEMATOCRIT 39.9 % (42.0-52.0); HEMOGLOBIN 13.5 g/dl (13.5-17.5); LYMPH # 0.7 10^3/uL (1.5-5.0); LYMPH % 10.4 % (24.0-44.0); MEAN CORPUSCULAR HEMOGLOBIN 32.6 pg (27.0-33.0); MEAN CORPUSCULAR HGB CONC 33.8 g/dl (32.0-36.5); MEAN CORPUSCULAR VOLUME 96.4 fl (80.0-96.0); MONO # 0.5 10^3/uL (0.0-0.8); MONO % 7.8 % (2.0-8.0); NEUTROPHILS # 5.3 10^3/uL (1.5-8.5); NEUTROPHILS % 76.3 % (36.0-66.0); PLATELET COUNT, AUTOMATED 228 10^3/uL (150-450); RED BLOOD COUNT 4.14 10^6/uL (4.30-6.10)
[2021-12-10 17:49] LABS: ALBUMIN 3.5 GM/DL (3.2-5.2); ALT/SGPT 29 U/L (12-78); BILIRUBIN,TOTAL 1.3 MG/DL (0.2-1.0); BLOOD UREA NITROGEN 19 MG/DL (7-18); C REACTIVE PROTEIN QUANTITATIV 0.63 MG/DL (0.00-0.30); CALCIUM LEVEL 8.9 MG/DL (8.8-10.2); CARBON DIOXIDE LEVEL 30 MEQ/L (21-32); CHLORIDE LEVEL 109 MEQ/L (98-107); CREATININE FOR GFR 0.91 MG/DL (0.70-1.30); GLOMERULAR FILTRATION RATE > 60.0 (>35); GLUCOSE, FASTING 103 MG/DL (70-100); POTASSIUM SERUM 3.8 MEQ/L (3.5-5.1); SODIUM LEVEL 142 MEQ/L (136-145); TOTAL PROTEIN 6.1 GM/DL (6.4-8.2)
[2021-12-10 18:15] LABS: ERYTHROCYTE SEDIMENTATION RATE 14 mm/hr (0-20)
== END ==
LOC: M PLALAB 15:25
PROVIDERS: ATTEND Internal Medicine Rheumatology
DX: M06.09 Rheumatoid arthritis without rheumatoid factor, multiple sites (principal); Z79.899 Other long term (current) drug therapy; M89.49 Other hypertrophic osteoarthropathy, multiple sites

== ENCOUNTER → 2021-12-26 | Outpatient (CLI) | payer MEDICARE, OTHER | LOC: M ONCR 11:33 | PROVIDERS: ATTEND General Practice | DX: C61 Malignant neoplasm of prostate (principal) ==

== ENCOUNTER → 2022-01-02 | Outpatient (CLI) | payer MEDICARE, OTHER ==
[~2022-01-02] MED LIST changes: +FLON27.5 NARES
== END ==
LOC: M ONCR 12:56
PROVIDERS: ATTEND General Practice
DX: R97.21 Rising PSA following treatment for malignant neoplasm of prostate (principal); R30.0 Dysuria; Z85.46 Personal history of malignant neoplasm of prostate; Z79.82 Long term (current) use of aspirin; Z79.899 Other long term (current) drug therapy; Z85.828 Personal history of other malignant neoplasm of skin; Z92.3 Personal history of irradiation

== ENCOUNTER → 2022-04-15 | Outpatient (CLI) | payer MEDICARE, OTHER ==
[~2022-04-15] MED LIST changes: +LEVO1TAB38 PO; -LEVO250T3 PO; +POTA-150 PO; -POTA10TA17 PO
[2022-04-15 14:37] LABS: BASO % 0.3 % (0.0-1.0); EOS # 0.2 10^3/uL (0.0-0.5); EOS % 2.3 % (0.0-3.0); HEMATOCRIT 44.5 % (42.0-52.0); HEMOGLOBIN 14.5 g/dl (13.5-17.5); LYMPH % 14.6 % (24.0-44.0); MEAN CORPUSCULAR HEMOGLOBIN 31.7 pg (27.0-33.0); MEAN CORPUSCULAR HGB CONC 32.6 g/dl (32.0-36.5); MEAN CORPUSCULAR VOLUME 97.2 fl (80.0-96.0); MONO # 0.5 10^3/uL (0.0-0.8); NEUTROPHILS # 5.2 10^3/uL (1.5-8.5); NEUTROPHILS % 75.4 % (36.0-66.0); PLATELET COUNT, AUTOMATED 217 10^3/uL (150-450); RED BLOOD COUNT 4.58 10^6/uL (4.30-6.10); WHITE BLOOD COUNT 6.9 10^3/uL (4.0-10.0)
[2022-04-15 15:14] LABS: ERYTHROCYTE SEDIMENTATION RATE 6 mm/hr (0-20)
[2022-04-15 15:15] LABS: ALBUMIN 3.7 GM/DL (3.2-5.2); ALT/SGPT 24 U/L (12-78); BILIRUBIN,TOTAL 1.4 MG/DL (0.2-1.0); BLOOD UREA NITROGEN 17 MG/DL (7-18); CALCIUM LEVEL 9.1 MG/DL (8.8-10.2); CARBON DIOXIDE LEVEL 30 MEQ/L (21-32); CHLORIDE LEVEL 107 MEQ/L (98-107); CREATININE FOR GFR 0.73 MG/DL (0.70-1.30); GLOMERULAR FILTRATION RATE > 60.0 (>35); GLUCOSE, FASTING 87 MG/DL (70-100); POTASSIUM SERUM 4.2 MEQ/L (3.5-5.1); SODIUM LEVEL 140 MEQ/L (136-145); TOTAL PROTEIN 6.3 GM/DL (6.4-8.2)
== END ==
LOC: M PLALAB 11:57
PROVIDERS: ATTEND Internal Medicine Rheumatology
DX: M06.09 Rheumatoid arthritis without rheumatoid factor, multiple sites (principal); M89.48 Other hypertrophic osteoarthropathy, other site; Z79.899 Other long term (current) drug therapy

== ENCOUNTER → 2022-04-19 | Outpatient (REF) | payer MEDICARE, OTHER | LOC: M WUC 17:31 | PROVIDERS: ATTEND Physician Assistant | DX: R30.0 Dysuria (principal); R31.9 Hematuria, unspecified ==

== ENCOUNTER → 2022-05-19 | Outpatient (CLI) | payer MEDICARE, OTHER ==
[2022-05-19 18:07] LABS: BASO % 0.1 % (0.0-1.0); EOS # 0.2 10^3/uL (0.0-0.5); EOS % 2.5 % (0.0-3.0); HEMATOCRIT 41.6 % (42.0-52.0); HEMOGLOBIN 13.8 g/dl (13.5-17.5); LYMPH # 0.9 10^3/uL (1.5-5.0); LYMPH % 11.1 % (24.0-44.0); MEAN CORPUSCULAR HEMOGLOBIN 32.2 pg (27.0-33.0); MEAN CORPUSCULAR HGB CONC 33.2 g/dl (32.0-36.5); MONO # 0.3 10^3/uL (0.0-0.8); MONO % 3.9 % (2.0-8.0); NEUTROPHILS # 6.3 10^3/uL (1.5-8.5); NEUTROPHILS % 82.1 % (36.0-66.0); PLATELET COUNT, AUTOMATED 220 10^3/uL (150-450); RED BLOOD COUNT 4.29 10^6/uL (4.30-6.10); WHITE BLOOD COUNT 7.7 10^3/uL (4.0-10.0)
[2022-05-19 19:11] LABS: ERYTHROCYTE SEDIMENTATION RATE 9 mm/hr (0-20)
[2022-05-19 20:51] LABS: ALBUMIN 3.7 GM/DL (3.2-5.2); ALT/SGPT 27 U/L (12-78); BILIRUBIN,TOTAL 1.7 MG/DL (0.2-1.0); BLOOD UREA NITROGEN 17 MG/DL (7-18); CALCIUM LEVEL 9.1 MG/DL (8.8-10.2); CARBON DIOXIDE LEVEL 28 MEQ/L (21-32); CHLORIDE LEVEL 106 MEQ/L (98-107); CREATININE FOR GFR 0.71 MG/DL (0.70-1.30); GLOMERULAR FILTRATION RATE > 60.0 (>35); GLUCOSE, FASTING 114 MG/DL (70-100); POTASSIUM SERUM 4.1 MEQ/L (3.5-5.1); SODIUM LEVEL 142 MEQ/L (136-145); TOTAL PROTEIN 6.2 GM/DL (6.4-8.2)
== END ==
LOC: M PLALAB 14:55
PROVIDERS: ATTEND Internal Medicine Rheumatology
DX: M06.9 Rheumatoid arthritis, unspecified (principal); M89.49 Other hypertrophic osteoarthropathy, multiple sites; Z79.899 Other long term (current) drug therapy

== ENCOUNTER → 2022-08-14 | Outpatient (CLI) | payer MEDICARE, OTHER ==
[2022-08-14 13:45] LABS: BASO % 0.4 % (0.0-1.0); EOS # 0.2 10^3/uL (0.0-0.5); EOS % 3.2 % (0.0-3.0); HEMATOCRIT 42.3 % (42.0-52.0); HEMOGLOBIN 14.1 g/dl (13.5-17.5); LYMPH # 0.7 10^3/uL (1.5-5.0); LYMPH % 11.9 % (24.0-44.0); MEAN CORPUSCULAR HEMOGLOBIN 33.3 pg (27.0-33.0); MEAN CORPUSCULAR HGB CONC 33.3 g/dl (32.0-36.5); MEAN CORPUSCULAR VOLUME 99.8 fl (80.0-96.0); MONO # 0.5 10^3/uL (0.0-0.8); MONO % 9.4 % (2.0-8.0); NEUTROPHILS # 4.2 10^3/uL (1.5-8.5); NEUTROPHILS % 74.4 % (36.0-66.0); PLATELET COUNT, AUTOMATED 231 10^3/uL (150-450); RED BLOOD COUNT 4.24 10^6/uL (4.30-6.10); WHITE BLOOD COUNT 5.6 10^3/uL (4.0-10.0)
[2022-08-14 14:20] LABS: ERYTHROCYTE SEDIMENTATION RATE 10 mm/hr (0-20)
[2022-08-14 14:22] LABS: C REACTIVE PROTEIN QUANTITATIV < 0.40 MG/DL (<1.0)
[2022-08-14 14:24] LABS: ALBUMIN 3.6 G/DL (3.2-5.2); ALKALINE PHOSPHATASE 89 U/L (46-116); ALT/SGPT 21 U/L (7.0-40); AST/SGOT 20 U/L (<34); BILIRUBIN,TOTAL 1.3 MG/DL (0.3-1.2); BLOOD UREA NITROGEN 14 MG/DL (9-23); CALCIUM LEVEL 8.8 MG/DL (8.3-10.6); CARBON DIOXIDE LEVEL 31 MMOL/L (20-31); CHLORIDE LEVEL 105 MMOL/L (98-107); CREATININE FOR GFR 0.69 MG/DL (0.70-1.30); GLOMERULAR FILTRATION RATE > 60.0 (>35); GLUCOSE, FASTING 84 MG/DL (74-106); POTASSIUM SERUM 4.4 MMOL/L (3.5-5.1); SODIUM LEVEL 142 MMOL/L (136-145); TOTAL PROTEIN 6.1 G/DL (5.7-8.2)
== END ==
LOC: M PLALAB 09:12
PROVIDERS: ATTEND Internal Medicine Rheumatology
DX: M06.09 Rheumatoid arthritis without rheumatoid factor, multiple sites (principal); M89.49 Other hypertrophic osteoarthropathy, multiple sites; Z79.899 Other long term (current) drug therapy

== ENCOUNTER → 2022-08-14 | Outpatient (CLI) | payer MEDICARE, OTHER ==
[~2022-08-14] MED LIST changes: +DEXA4TA PO; +NITR-67 PO
== END ==
LOC: M PLAIMG 09:13
PROVIDERS: ATTEND Internal Medicine Critical Care Medicine
DX: R91.8 Other nonspecific abnormal finding of lung field (principal); Z87.891 Personal history of nicotine dependence; I70.0 Atherosclerosis of aorta; M47.9 Spondylosis, unspecified; M06.9 Rheumatoid arthritis, unspecified; M89.49 Other hypertrophic osteoarthropathy, multiple sites; Z79.899 Other long term (current) drug therapy

== ENCOUNTER → 2022-09-08 | Outpatient (CLI) | payer MEDICARE, OTHER ==
[~2022-09-08] MED LIST changes: -DEXA4TA PO; -NITR-67 PO
== END ==
LOC: M PLAIMG 10:04
PROVIDERS: ATTEND Internal Medicine Critical Care Medicine
DX: R91.8 Other nonspecific abnormal finding of lung field (principal); I70.0 Atherosclerosis of aorta; I25.10 Atherosclerotic heart disease of native coronary artery without angina pectoris; K80.20 Calculus of gallbladder without cholecystitis without obstruction; K57.30 Diverticulosis of large intestine without perforation or abscess without bleeding

== ENCOUNTER → 2022-09-16 | Outpatient (CLI) | payer MEDICARE, OTHER ==
[~2022-09-16] MED LIST changes: +DEXA4TA PO; +DITR1TAB PO; +NITR-67 PO
== END ==
LOC: M ONCR 08:37
PROVIDERS: ATTEND General Practice
DX: C61 Malignant neoplasm of prostate (principal)

== ENCOUNTER → 2022-09-19 | Outpatient (CLI) | payer MEDICARE, OTHER ==
[~2022-09-19] MED LIST changes: -DITR1TAB PO
== END ==
LOC: M ONCR 11:32
PROVIDERS: ATTEND General Practice
DX: C61 Malignant neoplasm of prostate (principal); R35.0 Frequency of micturition; R35.1 Nocturia; R39.15 Urgency of urination; Z79.51 Long term (current) use of inhaled steroids; Z79.631 Long term (current) use of antimetabolite agent; Z79.82 Long term (current) use of aspirin; Z79.891 Long term (current) use of opiate analgesic; Z79.899 Other long term (current) drug therapy; Z85.828 Personal history of other malignant neoplasm of skin; Z92.29 Personal history of other drug therapy; Z92.3 Personal history of irradiation
CPT/HCPCS: 36415; 81001; G0463

== ENCOUNTER → 2022-11-10 | Outpatient (CLI) | payer MEDICARE, OTHER ==
[~2022-11-10] MED LIST changes: +ASPI-655 PO; -ASPI1CHW3 PO; +DITR1TAB PO
[2022-11-10 14:21] LABS: BASO % 0.4 % (0.0-1.0); EOS # 0.2 10^3/uL (0.0-0.5); EOS % 2.2 % (0.0-3.0); HEMOGLOBIN 13.6 g/dl (13.5-17.5); LYMPH # 0.7 10^3/uL (1.5-5.0); LYMPH % 10.2 % (24.0-44.0); MEAN CORPUSCULAR HEMOGLOBIN 33.1 pg (27.0-33.0); MEAN CORPUSCULAR HGB CONC 33.2 g/dl (32.0-36.5); MEAN CORPUSCULAR VOLUME 99.8 fl (80.0-96.0); MONO # 0.4 10^3/uL (0.0-0.8); MONO % 5.2 % (2.0-8.0); NEUTROPHILS # 5.6 10^3/uL (1.5-8.5); NEUTROPHILS % 81.6 % (36.0-66.0); PLATELET COUNT, AUTOMATED 205 10^3/uL (150-450); RED BLOOD COUNT 4.11 10^6/uL (4.30-6.10); WHITE BLOOD COUNT 6.9 10^3/uL (4.0-10.0)
[2022-11-10 14:33] LABS: ERYTHROCYTE SEDIMENTATION RATE 7 mm/hr (0-20)
[2022-11-10 14:56] LABS: ALBUMIN 3.4 G/DL (3.2-5.2); ALKALINE PHOSPHATASE 87 U/L (46-116); ALT/SGPT 25 U/L (7.0-40); AST/SGOT 20 U/L (<34); BILIRUBIN,TOTAL 1.4 MG/DL (0.3-1.2); BLOOD UREA NITROGEN 17 MG/DL (9-23); C REACTIVE PROTEIN QUANTITATIV < 0.40 MG/DL (<1.0); CALCIUM LEVEL 8.9 MG/DL (8.3-10.6); CARBON DIOXIDE LEVEL 31 MMOL/L (20-31); CHLORIDE LEVEL 106 MMOL/L (98-107); COMPLEMENT C3 108.2 MG/DL (90.0-170.0); CREATININE FOR GFR 0.68 MG/DL (0.70-1.30); GLOMERULAR FILTRATION RATE > 60.0 (>35); GLUCOSE, FASTING 87 MG/DL (74-106); SODIUM LEVEL 142 MMOL/L (136-145); TOTAL PROTEIN 5.7 G/DL (5.7-8.2)
[2022-11-10 14:57] LABS: COMPLEMENT C4 25.6 MG/DL (12-36)
[2022-11-10 14:58] LABS: IMMUNOGLOBULIN G 481 MG/DL (650-1600)
[2022-11-10 15:14] LABS: IMMUNOGLOBULIN M < 21.0 MG/DL (50-300)
[2022-11-12 08:12] LABS: COMPLEMENT TOTAL (CH50) > 60 U/mL (>41); SSA SJOGRENS A <0.2 AI (0.0-0.9); SSB SJOGRENS B <0.2 AI (0.0-0.9)
== END ==
LOC: M PLALAB 10:51
PROVIDERS: ATTEND Internal Medicine Rheumatology
DX: M06.09 Rheumatoid arthritis without rheumatoid factor, multiple sites (principal); Z79.899 Other long term (current) drug therapy; R17 Unspecified jaundice; M89.49 Other hypertrophic osteoarthropathy, multiple sites; D72.810 Lymphocytopenia

== ENCOUNTER → 2022-12-04 | Outpatient (CLI) | payer MEDICARE, OTHER | LOC: M PLAIMG 14:28 | PROVIDERS: ATTEND Orthopaedic Surgery | DX: M51.16 Intervertebral disc disorders with radiculopathy, lumbar region (principal); M47.26 Other spondylosis with radiculopathy, lumbar region ==

== ENCOUNTER → 2022-12-31 | Outpatient (CLI) | payer MEDICARE, OTHER | LOC: M ONCR 13:06 | PROVIDERS: ATTEND General Practice | DX: C61 Malignant neoplasm of prostate (principal); Z71.2 Person consulting for explanation of examination or test findings; Z79.3 Long term (current) use of hormonal contraceptives; Z79.51 Long term (current) use of inhaled steroids; Z79.631 Long term (current) use of antimetabolite agent; Z79.82 Long term (current) use of aspirin; Z79.899 Other long term (current) drug therapy; Z87.891 Personal history of nicotine dependence | CPT/HCPCS: 36415; 84153; G0463 ==

== ENCOUNTER → 2023-02-20 | Outpatient (CLI) | payer MEDICARE, OTHER ==
[~2023-02-20] MED LIST changes: +DICL100G10 TOP; -DICL1GEL3 TOP; -ROPI1TAB3 PO; +ROPI1TAB73 PO
[2023-02-20 11:19] LABS: BASO % 0.2 % (0.0-1.0); EOS # 0.3 10^3/uL (0.0-0.5); EOS % 3.8 % (0.0-3.0); HEMOGLOBIN 13.3 g/dl (13.5-17.5); LYMPH # 0.7 10^3/uL (1.5-5.0); LYMPH % 10.8 % (24.0-44.0); MEAN CORPUSCULAR HEMOGLOBIN 32.4 pg (27.0-33.0); MEAN CORPUSCULAR HGB CONC 32.4 g/dl (32.0-36.5); MEAN CORPUSCULAR VOLUME 99.8 fl (80.0-96.0); MONO # 0.6 10^3/uL (0.0-0.8); MONO % 8.3 % (2.0-8.0); NEUTROPHILS # 5.1 10^3/uL (1.5-8.5); NEUTROPHILS % 76.4 % (36.0-66.0); PLATELET COUNT, AUTOMATED 202 10^3/uL (150-450); RED BLOOD COUNT 4.11 10^6/uL (4.30-6.10); WHITE BLOOD COUNT 6.7 10^3/uL (4.0-10.0)
[2023-02-20 11:40] LABS: ERYTHROCYTE SEDIMENTATION RATE 5 mm/hr (0-20)
[2023-02-20 11:44] LABS: ALBUMIN 3.4 G/DL (3.2-5.2); ALKALINE PHOSPHATASE 92 U/L (46-116); ALT/SGPT 14 U/L (7.0-40); AST/SGOT 11 U/L (<34); BILIRUBIN,TOTAL 1.5 MG/DL (0.3-1.2); BLOOD UREA NITROGEN 11 MG/DL (9-23); CALCIUM LEVEL 8.8 MG/DL (8.3-10.6); CARBON DIOXIDE LEVEL 30 MMOL/L (20-31); CHLORIDE LEVEL 108 MMOL/L (98-107); CREATININE FOR GFR 0.67 MG/DL (0.70-1.30); GLOMERULAR FILTRATION RATE > 60.0 (>35); GLUCOSE, FASTING 91 MG/DL (74-106); POTASSIUM SERUM 4.4 MMOL/L (3.5-5.1); SODIUM LEVEL 144 MMOL/L (136-145); TOTAL PROTEIN 5.7 G/DL (5.7-8.2)
== END ==
LOC: M PLALAB 07:41
PROVIDERS: ATTEND Internal Medicine Rheumatology
DX: M06.09 Rheumatoid arthritis without rheumatoid factor, multiple sites (principal)

== ENCOUNTER → 2023-03-30 | Outpatient (CLI) | payer MEDICARE, OTHER ==
[~2023-03-30] MED LIST changes: +BACTDSTA PO; -CELE1CAP7 PO; +CELE1CAP8 PO; +LIDO1PAD TOP; +MAGN400T2 PO; +MELA3TAB30 PO; +OXYB10TA23 PO; +PHEN1TAB73 PO; +PRED25TA PO
[2023-03-30 17:52] LABS: PLATELET COUNT, AUTOMATED 226 10^3/uL (150-450)
[2023-03-30 17:54] LABS: INR 1.03; PROTHROMBIN TIME 13.2 SECONDS (12.5-14.5)
[2023-03-30 17:55] LABS: PARTIAL THROMBOPLASTIN TIME 28.4 SECONDS (24.8-34.2)
== END ==
LOC: M PLALAB 15:06
PROVIDERS: ATTEND Physical Medicine & Rehabilitation
DX: Z01.818 Encounter for other preprocedural examination (principal)

== ENCOUNTER → 2023-04-15 | Outpatient (CLI) | payer MEDICARE, OTHER ==
[2023-04-15 14:40] LABS: IMMUNOGLOBULIN A 187.2 MG/DL (40-350); IMMUNOGLOBULIN G 540 MG/DL (650-1600); IMMUNOGLOBULIN M 28.3 MG/DL (50-300)
[2023-04-15 14:41] LABS: ALBUMIN 3.6 G/DL (3.2-5.2); ALKALINE PHOSPHATASE 88 U/L (46-116); ALT/SGPT 15 U/L (7.0-40); AST/SGOT 16 U/L (<34); BILIRUBIN,TOTAL 1.6 MG/DL (0.3-1.2); BLOOD UREA NITROGEN 15 MG/DL (9-23); CALCIUM LEVEL 9.2 MG/DL (8.3-10.6); CARBON DIOXIDE LEVEL 30 MMOL/L (20-31); CHLORIDE LEVEL 108 MMOL/L (98-107); CREATININE FOR GFR 0.69 MG/DL (0.70-1.30); GLOMERULAR FILTRATION RATE > 60.0 (>35); GLUCOSE, FASTING 90 MG/DL (74-106); POTASSIUM SERUM 4.5 MMOL/L (3.5-5.1); SODIUM LEVEL 144 MMOL/L (136-145); TOTAL PROTEIN 5.8 G/DL (5.7-8.2)
[2023-04-15 15:11] LABS: IMMUNOGLOBULIN E 16.7 IU/ML (0-378)
[2023-04-15 16:31] LABS: BASO % 0.1 % (0.0-1.0); EOS # 0.2 10^3/uL (0.0-0.5); EOS % 2.9 % (0.0-3.0); HEMATOCRIT 43.7 % (42.0-52.0); LYMPH # 0.8 10^3/uL (1.5-5.0); LYMPH % 11.3 % (24.0-44.0); MEAN CORPUSCULAR HEMOGLOBIN 31.9 pg (27.0-33.0); MEAN CORPUSCULAR VOLUME 99.5 fl (80.0-96.0); MONO # 0.7 10^3/uL (0.0-0.8); MONO % 10.1 % (2.0-8.0); NEUTROPHILS # 5.3 10^3/uL (1.5-8.5); NEUTROPHILS % 75.2 % (36.0-66.0); PLATELET COUNT, AUTOMATED 235 10^3/uL (150-450); RED BLOOD COUNT 4.39 10^6/uL (4.30-6.10)
== END ==
LOC: M PLALAB 09:45
PROVIDERS: ATTEND Physician Assistant
DX: D72.810 Lymphocytopenia (principal)

== ENCOUNTER 2023-04-26 19:33 | Observation (INO) | payer MEDICARE, OTHER ==
[~2023-04-26] VITALS: Ht 170.2 cm; Wt 73.7 kg
[~2023-04-26 19:33] MED LIST changes: -CELE1CAP8 PO; +CELE1CAP99 PO
[2023-04-26 20:44] LABS: BASO % 0.5 % (0.0-1.0); EOS # 0.3 10^3/uL (0.0-0.5); EOS % 4.1 % (0.0-3.0); HEMATOCRIT 40.6 % (42.0-52.0); HEMOGLOBIN 13.9 g/dl (13.5-17.5); LYMPH # 1.1 10^3/uL (1.5-5.0); LYMPH % 16.6 % (24.0-44.0); MEAN CORPUSCULAR HEMOGLOBIN 32.3 pg (27.0-33.0); MEAN CORPUSCULAR HGB CONC 34.2 g/dl (32.0-36.5); MEAN CORPUSCULAR VOLUME 94.2 fl (80.0-96.0); MONO # 0.6 10^3/uL (0.0-0.8); MONO % 8.9 % (2.0-8.0); NEUTROPHILS # 4.5 10^3/uL (1.5-8.5); NEUTROPHILS % 69.6 % (36.0-66.0); PLATELET COUNT, AUTOMATED 269 10^3/uL (150-450); RED BLOOD COUNT 4.31 10^6/uL (4.30-6.10); WHITE BLOOD COUNT 6.4 10^3/uL (4.0-10.0)
[2023-04-26 21:12] LABS: ALBUMIN 3.7 G/DL (3.2-5.2); ALKALINE PHOSPHATASE 97 U/L (46-116); ALT/SGPT 15 U/L (7.0-40); AST/SGOT 19 U/L (<34); BILIRUBIN,TOTAL 1.4 MG/DL (0.3-1.2); BLOOD UREA NITROGEN 16 MG/DL (9-23); CALCIUM LEVEL 9.1 MG/DL (8.3-10.6); CARBON DIOXIDE LEVEL 29 MMOL/L (20-31); CHLORIDE LEVEL 109 MMOL/L (98-107); CREATININE FOR GFR 0.74 MG/DL (0.70-1.30); GLOMERULAR FILTRATION RATE > 60.0 (>35); GLUCOSE, FASTING 97 MG/DL (74-106); POTASSIUM SERUM 4.5 MMOL/L (3.5-5.1); SODIUM LEVEL 144 MMOL/L (136-145); TOTAL PROTEIN 6.1 G/DL (5.7-8.2)
[2023-04-26] MEDS ORDERED: NS 1,000 ML IV ONE (21:35)
[2023-04-26] MEDS ORDERED: ISOVUE-370 76% 100ML VIAL As Ordered ONE (21:36)
[2023-04-26 22:53] LABS: INR 1.1; PROTHROMBIN TIME 13.9 SECONDS (12.5-14.5)
[2023-04-26 22:54] LABS: PARTIAL THROMBOPLASTIN TIME 29.9 SECONDS (24.8-34.2)
[2023-04-27] MEDS ORDERED: ONDANSETRON 4MG 2ML VIAL IV PRN
[2023-04-27] MEDS ORDERED: ACETAMINOPHEN TAB 650MG DOSE (2X325MG) PO PRN
[2023-04-27] MEDS ORDERED: MORPHINE 2 MG/ML 1ML VIAL IV PRN
[2023-04-27] MEDS ORDERED: PROC1AER16 TOP (00:33)
[2023-04-27] MEDS ORDERED: HOME MED LIST COMPLETE! XX SCH (00:35)
[2023-04-27] MEDS: cefTRIAXone SOD 2 GM in D5W MINI-BAG PLUS 50 ML IV SCH ×2 (00:53→23:15)
[2023-04-27] MEDS: NS 1,000 ML IV SCH ×2 (00:54→10:42)
[2023-04-27 01:25] LABS: HEMATOCRIT 37.7 % (42.0-52.0)
[2023-04-27] MEDS: metroNIDAZOLE 500 MG in IV 1 EA IV SCH ×3 (03:07→16:15)
[2023-04-27] MEDS ORDERED: amLODIPine 5 MG TAB PO ONE ×2 (04:20→06:50)
[2023-04-27 08:04] LABS: HEMATOCRIT 42.5 % (42.0-52.0)
[2023-04-27 08:32] LABS: BLOOD UREA NITROGEN 12 MG/DL (9-23); CALCIUM LEVEL 8.8 MG/DL (8.3-10.6); CARBON DIOXIDE LEVEL 28 MMOL/L (20-31); CHLORIDE LEVEL 109 MMOL/L (98-107); CREATININE FOR GFR 0.69 MG/DL (0.70-1.30); GLOMERULAR FILTRATION RATE > 60.0 (>35); GLUCOSE, FASTING 91 MG/DL (74-106); POTASSIUM SERUM 4.1 MMOL/L (3.5-5.1); SODIUM LEVEL 145 MMOL/L (136-145)
[2023-04-27] MEDS: oxyBUTYnin *DITROPAN XL* 5 MG TABCR PO SCH (09:23)
[2023-04-27] MEDS: MESALAMINE 1,000 MG SUPP PR SCH (09:23)
[2023-04-27] MEDS: predniSONE 2.5 MG TAB PO SCH (09:23)
[2023-04-27 14:14] LABS: HEMATOCRIT 42.3 % (42.0-52.0); HEMOGLOBIN 14.4 g/dl (13.5-17.5)
[2023-04-27 14:35] VITALS: BP 144/76; TEMP 98.2; O2SAT 95
[2023-04-27] MEDS ORDERED: CHLORTHALIDONE 25 MG TAB PO ONE (15:30)
[2023-04-27 20:24] VITALS: BP 150/66; TEMP 98.1; O2SAT 98
[2023-04-27] MEDS: MAGNESIUM OXIDE 400MG TAB (MAG-OX) PO SCH (20:50)
[2023-04-27] MEDS ORDERED: GABAPENTIN 100 MG CAP PO SCH (21:00)
[2023-04-27] MEDS ORDERED: rOPINIRole 1MG TAB PO SCH (21:00)
[2023-04-27] MEDS ORDERED: TAMSULOSIN 0.4 MG CAP PO SCH (21:00)
[2023-04-28] MEDS: metroNIDAZOLE 500 MG in IV 1 EA IV SCH ×2 (00:19→08:22)
[2023-04-28 05:21] VITALS: BP 133/58; TEMP 98.2; O2SAT 95
[2023-04-28 06:11] LABS: BASO % 0.3 % (0.0-1.0); EOS # 0.2 10^3/uL (0.0-0.5); HEMATOCRIT 37.7 % (42.0-52.0); HEMOGLOBIN 13.3 g/dl (13.5-17.5); LYMPH # 0.9 10^3/uL (1.5-5.0); LYMPH % 15.2 % (24.0-44.0); MEAN CORPUSCULAR HEMOGLOBIN 33.2 pg (27.0-33.0); MEAN CORPUSCULAR HGB CONC 35.3 g/dl (32.0-36.5); MONO # 0.7 10^3/uL (0.0-0.8); MONO % 11.2 % (2.0-8.0); PLATELET COUNT, AUTOMATED 249 10^3/uL (150-450); RED BLOOD COUNT 4.01 10^6/uL (4.30-6.10); WHITE BLOOD COUNT 5.8 10^3/uL (4.0-10.0)
[2023-04-28 06:38] LABS: BLOOD UREA NITROGEN 9 MG/DL (9-23); CALCIUM LEVEL 8.7 MG/DL (8.3-10.6); CARBON DIOXIDE LEVEL 27 MMOL/L (20-31); CHLORIDE LEVEL 108 MMOL/L (98-107); CREATININE FOR GFR 0.61 MG/DL (0.70-1.30); GLOMERULAR FILTRATION RATE > 60.0 (>35); GLUCOSE, FASTING 92 MG/DL (74-106); POTASSIUM SERUM 3.6 MMOL/L (3.5-5.1); SODIUM LEVEL 142 MMOL/L (136-145)
[2023-04-28] MEDS: CHLORTHALIDONE 25 MG TAB PO SCH ×2 (08:23→08:29)
[2023-04-28] MEDS: oxyBUTYnin *DITROPAN XL* 5 MG TABCR PO SCH (08:23)
[2023-04-28] MEDS: MAGNESIUM OXIDE 400MG TAB (MAG-OX) PO SCH (08:23)
[2023-04-28 08:29] VITALS: BP 123/46
[2023-04-28] MEDS ORDERED: AMLO1TAB25 PO (10:28)
[2023-04-28] MEDS ORDERED: AMOX875T2 PO (10:28)
[2023-04-28] MEDS: predniSONE 2.5 MG TAB PO SCH (11:35)
[2023-04-28] MEDS: MESALAMINE 1,000 MG SUPP PR SCH (11:36)
[2023-04-30] MEDS ORDERED: METHOTREXATE 2.5MG TAB PO SCH (09:00)
== END 2023-04-28 14:30 | disposition home or self-care (01) ==
LOC: M ED 19:33 → M ED INP 23:59 → INTOOBSV 23:59 → M MSPAV 04-27 14:32
PROVIDERS: ADMIT Internal Medicine; ATTEND Student in an Organized Health Care Education/Training Program
DX: K57.33 Diverticulitis of large intestine without perforation or abscess with bleeding (principal); K64.8 Other hemorrhoids; K62.5 Hemorrhage of anus and rectum; N39.0 Urinary tract infection, site not specified; R03.0 Elevated blood-pressure reading, without diagnosis of hypertension; M06.9 Rheumatoid arthritis, unspecified; G25.81 Restless legs syndrome; N32.81 Overactive bladder; G47.33 Obstructive sleep apnea (adult) (pediatric); K21.9 Gastro-esophageal reflux disease without esophagitis; Z79.2 Long term (current) use of antibiotics; Z79.899 Other long term (current) drug therapy
CPT/HCPCS: 36415; 74174; 80048; 80053; 81001; 82270; 83605; 83735; 85014; 85018; 85025; 85384; 85610; 85730; 86850; 86900; 86901; 87040; 87088; 87186; 87635; 93005; 96361; 96365; 96366; 96367; 96375; 97161; 99285; G0378; J0696; J1836; J7512; Q9967

== ENCOUNTER → 2023-05-27 | Outpatient (CLI) | payer MEDICARE, OTHER ==
[~2023-05-27] MED LIST changes: +AMLO1TAB25 PO; +AMOX875T2 PO; +PROC1AER16 TOP
[2023-05-27 12:04] LABS: ALBUMIN 3.6 G/DL (3.2-5.2); ALKALINE PHOSPHATASE 85 U/L (46-116); ALT/SGPT 19 U/L (7.0-40); AST/SGOT 21 U/L (<34); BILIRUBIN,TOTAL 1.2 MG/DL (0.3-1.2); BLOOD UREA NITROGEN 14 MG/DL (9-23); CALCIUM LEVEL 9.7 MG/DL (8.3-10.6); CARBON DIOXIDE LEVEL 30 MMOL/L (20-31); CHLORIDE LEVEL 109 MMOL/L (98-107); CREATININE FOR GFR 0.64 MG/DL (0.70-1.30); GLOMERULAR FILTRATION RATE > 60.0 (>35); GLUCOSE, FASTING 90 MG/DL (74-106); POTASSIUM SERUM 4.8 MMOL/L (3.5-5.1); SODIUM LEVEL 146 MMOL/L (136-145)
[2023-05-27 12:08] LABS: BASO % 0.2 % (0.0-1.0); EOS # 0.3 10^3/uL (0.0-0.5); EOS % 4.6 % (0.0-3.0); HEMATOCRIT 41.4 % (42.0-52.0); HEMOGLOBIN 13.6 g/dl (13.5-17.5); LYMPH # 1.1 10^3/uL (1.5-5.0); LYMPH % 20.1 % (24.0-44.0); MEAN CORPUSCULAR HEMOGLOBIN 31.6 pg (27.0-33.0); MEAN CORPUSCULAR HGB CONC 32.9 g/dl (32.0-36.5); MEAN CORPUSCULAR VOLUME 96.3 fl (80.0-96.0); MONO # 0.4 10^3/uL (0.0-0.8); NEUTROPHILS # 3.7 10^3/uL (1.5-8.5); NEUTROPHILS % 66.7 % (36.0-66.0); PLATELET COUNT, AUTOMATED 241 10^3/uL (150-450); WHITE BLOOD COUNT 5.5 10^3/uL (4.0-10.0)
[2023-05-27 12:29] LABS: ERYTHROCYTE SEDIMENTATION RATE 6 mm/hr (0-20)
== END ==
LOC: M PLALAB 08:01
PROVIDERS: ATTEND Internal Medicine Rheumatology
DX: M06.09 Rheumatoid arthritis without rheumatoid factor, multiple sites (principal); Z79.899 Other long term (current) drug therapy; R17 Unspecified jaundice; M89.49 Other hypertrophic osteoarthropathy, multiple sites

== ENCOUNTER → 2023-06-02 | Outpatient (REF) | payer MEDICARE, OTHER | LOC: M SFHCRHEU 08:54 | PROVIDERS: ATTEND Internal Medicine Rheumatology | DX: M06.09 Rheumatoid arthritis without rheumatoid factor, multiple sites (principal); Z79.899 Other long term (current) drug therapy; R17 Unspecified jaundice; M89.49 Other hypertrophic osteoarthropathy, multiple sites ==

== ENCOUNTER 2023-06-17 11:52 | Emergency (ER) | payer MEDICARE, OTHER ==
[~2023-06-17] VITALS: Ht 167.6 cm; Wt 75.0 kg
[2023-06-17] MEDS ORDERED: fentaNYL 100 MCG/2 ML INJECTION IV ONE (12:10)
[2023-06-17] MEDS: fentaNYL 100 MCG/2 ML INJECTION IV PRN ×2 (14:02→14:46)
[2023-06-17 14:35] LABS: BASO % 0.2 % (0.0-1.0); EOS # 0.1 10^3/uL (0.0-0.5); EOS % 1.2 % (0.0-3.0); HEMATOCRIT 40.8 % (42.0-52.0); HEMOGLOBIN 13.6 g/dl (13.5-17.5); LYMPH # 0.9 10^3/uL (1.5-5.0); LYMPH % 10.5 % (24.0-44.0); MEAN CORPUSCULAR HEMOGLOBIN 32.2 pg (27.0-33.0); MEAN CORPUSCULAR HGB CONC 33.3 g/dl (32.0-36.5); MEAN CORPUSCULAR VOLUME 96.7 fl (80.0-96.0); MONO # 0.5 10^3/uL (0.0-0.8); MONO % 6.3 % (2.0-8.0); NEUTROPHILS # 6.7 10^3/uL (1.5-8.5); NEUTROPHILS % 81.3 % (36.0-66.0); PLATELET COUNT, AUTOMATED 219 10^3/uL (150-450); RED BLOOD COUNT 4.22 10^6/uL (4.30-6.10); WHITE BLOOD COUNT 8.2 10^3/uL (4.0-10.0)
[2023-06-17 14:46] LABS: INR 1.08; PROTHROMBIN TIME 13.6 SECONDS (12.5-14.5)
[2023-06-17 14:47] LABS: PARTIAL THROMBOPLASTIN TIME 28.4 SECONDS (24.8-34.2)
[2023-06-17 15:00] LABS: LIPASE 21 U/L (12-53)
[2023-06-17 15:02] LABS: ALBUMIN 3.5 G/DL (3.2-5.2); ALKALINE PHOSPHATASE 97 U/L (46-116); ALT/SGPT 19 U/L (7.0-40); AST/SGOT 20 U/L (<34); BILIRUBIN,DIRECT 0.4 MG/DL (<0.4); BILIRUBIN,TOTAL 1.2 MG/DL (0.3-1.2); BLOOD UREA NITROGEN 12 MG/DL (9-23); CALCIUM LEVEL 9.1 MG/DL (8.3-10.6); CARBON DIOXIDE LEVEL 26 MMOL/L (20-31); CHLORIDE LEVEL 109 MMOL/L (98-107); CREATININE FOR GFR 0.61 MG/DL (0.70-1.30); GLOMERULAR FILTRATION RATE > 60.0 (>35); GLUCOSE, FASTING 100 MG/DL (74-106); POTASSIUM SERUM 3.8 MMOL/L (3.5-5.1); SODIUM LEVEL 144 MMOL/L (136-145); TOTAL PROTEIN 5.9 G/DL (5.7-8.2)
[2023-06-17 15:05] LABS: RSV AMPLIFICATION NEGATIVE (NEGATIVE)
[2023-06-17] MEDS ORDERED: HYDR-3713 PO (18:21)
[2023-06-17 18:29] VITALS: BP 171/74; TEMP 98.1; O2SAT 100
[2023-06-19] MEDS ORDERED: AMLO1TAB25 PO (18:23)
[2023-06-22] MEDS ORDERED: CEFD1CAP9 PO (12:18)
[2023-06-22] MEDS ORDERED: ASPI81CH33 PO (12:19)
== END 2023-06-17 18:35 | disposition home or self-care (01) ==
LOC: EDBD 11:52 → M ED 11:52
DX: S42.351A Displaced comminuted fracture of shaft of humerus, right arm, initial encounter for closed fracture (principal); W01.0XXA Fall on same level from slipping, tripping and stumbling without subsequent striking against object, initial encounter; I10 Essential (primary) hypertension; R00.1 Bradycardia, unspecified; E78.5 Hyperlipidemia, unspecified; C61 Malignant neoplasm of prostate; Y92.009 Unspecified place in unspecified non-institutional (private) residence as the place of occurrence of the external cause; Y93.89 Activity, other specified; Y99.9 Unspecified external cause status; Z87.891 Personal history of nicotine dependence; Z79.52 Long term (current) use of systemic steroids; Z79.891 Long term (current) use of opiate analgesic; Z79.899 Other long term (current) drug therapy
CPT/HCPCS: 70450; 72125; 73060; 73070; 73200; 73700; 80048; 80076; 81001; 83690; 85025; 85610; 85730; 86850; 86900; 86901; 87631; 93005; 93041; 96374; 96375; 99285; J3010

== ENCOUNTER → 2023-06-25 | Outpatient (CLI) | payer MEDICARE, OTHER ==
[~2023-06-25] MED LIST changes: +ASPI81CH33 PO; +CEFD1CAP9 PO; +HYDR-3713 PO
[2023-06-25 16:53] LABS: ALBUMIN 3.4 G/DL (3.2-5.2); ALKALINE PHOSPHATASE 95 U/L (46-116); ALT/SGPT 38 U/L (7.0-40); AST/SGOT 35 U/L (<34); BILIRUBIN,TOTAL 1.5 MG/DL (0.3-1.2); BLOOD UREA NITROGEN 20 MG/DL (9-23); CALCIUM LEVEL 9.1 MG/DL (8.3-10.6); CARBON DIOXIDE LEVEL 28 MMOL/L (20-31); CHLORIDE LEVEL 106 MMOL/L (98-107); CREATININE FOR GFR 0.61 MG/DL (0.70-1.30); GLOMERULAR FILTRATION RATE > 60.0 (>35); GLUCOSE, FASTING 109 MG/DL (74-106); POTASSIUM SERUM 4.6 MMOL/L (3.5-5.1); PROSTATIC SPECIFIC AG MONITOR 0.14 NG/ML (< 4.00); SODIUM LEVEL 142 MMOL/L (136-145); TOTAL PROTEIN 5.8 G/DL (5.7-8.2)
== END ==
LOC: M PLALAB 13:19
PROVIDERS: ATTEND General Practice
DX: C61 Malignant neoplasm of prostate (principal)

== ENCOUNTER → 2023-06-30 | Outpatient (CLI) | payer MEDICARE, OTHER | LOC: M SOG 09:48 | PROVIDERS: ATTEND Physician Assistant | DX: S42.401D Unspecified fracture of lower end of right humerus, subsequent encounter for fracture with routine healing (principal); M79.644 Pain in right finger(s); M77.8 Other enthesopathies, not elsewhere classified; M18.11 Unilateral primary osteoarthritis of first carpometacarpal joint, right hand ==

== ENCOUNTER → 2023-07-01 | Outpatient (CLI) | payer MEDICARE, OTHER | LOC: M ONCR 13:30 | PROVIDERS: ATTEND General Practice | DX: Z08 Encounter for follow-up examination after completed treatment for malignant neoplasm (principal); R97.21 Rising PSA following treatment for malignant neoplasm of prostate; Z85.46 Personal history of malignant neoplasm of prostate; Z87.891 Personal history of nicotine dependence; Z92.3 Personal history of irradiation ==